=== PATIENT | male | born 1945 | race Caucasian/White ===

== ENCOUNTER 2018-11-01 23:37 | Observation (INO) | payer MEDICARE, OTHER ==
[~2018-11-01] VITALS: Ht 182.9 cm; Wt 91.2 kg
[~2018-11-01 23:37] MED LIST: ATOR80 PO; BUDE6HFA INH; CIPR500 PO; DABI150C PO; DOCU100 PO; GABA100 PO; LOSA25; LOSA50 PO; METO25 PO; METR500 PO; MIRALAX17 GM PO; Norco 10-325 T1 EACH PO; OMEG1CAP30 PO; OYSTER SHELL 51 EACH PO; PANT40 PO; [UNRECOGNIZED DRUG - CODE] PO; [UNRECOGNIZED DRUG - OTHER] PO
[2018-11-02 00:32] LABS: BASOPHILS PERCENT AUTO 1 % (0-2); EOSINOPHILS ABSOLUTE AUTO 0.16 K/mm3 (0.00-0.68); EOSINOPHILS PERCENT AUTO 2 % (0-6); Hematocrit 45.6 % (37.0-53.0); Hemoglobin 15.2 g/dL (13.5-17.5); IMMATURE GRAN ABSOLUTE AUTO 0.02 K/mm3 (0.00-0.10); IMMATURE GRAN PERCENT AUTO 0 % (0-1); LYMPHOCYTES PERCENT AUTO 17 % (21-46); MONOCYTES ABSOLUTE AUTO 0.53 K/mm3 (0.16-1.47); MONOCYTES PERCENT AUTO 7 % (4-13); Mean Corpuscular HGB 30.7 pg (26.0-34.0); Mean Corpuscular HGB Conc 33.3 g/dL (31.5-36.5); Mean Corpuscular Volume 92 fL (80-100); Mean Platelet Volume 11.1 fL (9.1-12.4); NEUTROPHILS ABSOLUTE AUTO 5.98 K/mm3 (1.96-9.15); NEUTROPHILS PERCENT AUTO 73 % (41-73); Platelet Count 221 K/mm3 (150-400); RDW Standard Deviation 47.4 fL (35.1-46.3); Red Blood Cell Count 4.95 M/mm3 (4.30-5.90); White Blood Cell Count 8.19 K/mm3 (4.00-11.30)
[2018-11-02 00:54] LABS: Alanine Aminotransfer (ALT/SGP 25 U/L (12-78); Albumin/Globulin Ratio 0.9 (0.8-1.8); Alk Phos 72 U/L (50-136); Anion Gap 7 mmol/L (6-16); Aspartate Aminotrans (AST/SGOT 15 U/L (12-37); Bilirubin, Total 0.9 mg/dL (0.1-1.0); Blood Urea Nitrogen 13 mg/dL (8-24); Bun/Creatinine Ratio 12.1 (12.0-20.0); CO2, Blood 28 mmol/L (21-32); Calcium, Blood 8.3 mg/dL (8.5-10.1); Chloride, Blood 109 mmol/L (98-108); Creatinine, Blood 1.07 mg/dL (0.60-1.20); Globulin, Blood 3.4 g/dL (2.2-4.0); Glomerular Filtration Rate >60 (60-); Glucose, Blood 109 mg/dL (70-99); Potassium, Blood 3.8 mmol/L (3.5-5.5); Sodium, Blood 144 mmol/L (136-145); Total Protein, Blood 6.4 g/dL (6.4-8.2)
[2018-11-02] MEDS ORDERED: PANT40 PO (02:14)
[2018-11-02 05:24] LABS: Hematocrit 44.1 % (37.0-53.0); Hemoglobin 14.6 g/dL (13.5-17.5); Mean Corpuscular HGB 30.7 pg (26.0-34.0); Mean Corpuscular HGB Conc 33.1 g/dL (31.5-36.5); Mean Corpuscular Volume 93 fL (80-100); Mean Platelet Volume 11.3 fL (9.1-12.4); Platelet Count 211 K/mm3 (150-400); RDW Standard Deviation 47.8 fL (35.1-46.3); Red Blood Cell Count 4.76 M/mm3 (4.30-5.90); White Blood Cell Count 9.22 K/mm3 (4.00-11.30)
[2018-11-02 05:43] LABS: Alanine Aminotransfer (ALT/SGP 25 U/L (12-78); Albumin, Blood 2.8 g/dL (3.4-5.0); Albumin/Globulin Ratio 0.9 (0.8-1.8); Alk Phos 75 U/L (50-136); Anion Gap 6 mmol/L (6-16); Aspartate Aminotrans (AST/SGOT 20 U/L (12-37); Bilirubin, Total 0.8 mg/dL (0.1-1.0); Blood Urea Nitrogen 12 mg/dL (8-24); Bun/Creatinine Ratio 11.3 (12.0-20.0); CO2, Blood 28 mmol/L (21-32); Calcium, Blood 7.9 mg/dL (8.5-10.1); Chloride, Blood 110 mmol/L (98-108); Creatinine, Blood 1.06 mg/dL (0.60-1.20); Globulin, Blood 3.2 g/dL (2.2-4.0); Glomerular Filtration Rate >60 (60-); Glucose, Blood 101 mg/dL (70-99); Potassium, Blood 3.9 mmol/L (3.5-5.5); Sodium, Blood 144 mmol/L (136-145)
--- NOTE | 2018-11-02 06:26 | NUR ---
SHIFT SUMMARY PT NEW ED ADMIT THIS EVENING. NO NAUSEA OR EMESIS SINCE ADMISSION. NO BLOOD NOTED IN SPUTUM. PT VERY PARTICULAR ABOUT CARE AND MOVEMENT. PAINFUL ON LEFT SIDE OF BODY WITH ANY TOUCH. CONTINENT. USES URINAL WHILE IN BED. REPORTS HE GETS UP TO CHAIR AT HIS [facility] BUT WOULD NEED HIS SHOES IN ORDER TO ATTEMPT TO GET UP HERE. GI CONSULT CALLED IN. PROTONIX DRIP RUNNING. NO ACUTE CHANGES SINCE ADMISSION. VSS. WILL CONTINUE TO MONITOR.
[2018-11-02 08:22] LABS: Hematocrit 40.5 % (37.0-53.0); Hemoglobin 13.4 g/dL (13.5-17.5)
--- NOTE | 2018-11-02 11:44 | NUR ---
SPOKE WITH DR. RIDER ON THE PHONE. DR. RIDER SAID TO INCREASE PT'S DIET TO REGULAR DIET. DR. RIDER SAID TO D/C PROTONIX DRIP AND SWITCH TO 40MG PO PROTONIX BID. NO OTHER NEW ORDERS AT THIS TIME.
[2018-11-02 16:35] LABS: Hematocrit 41.1 % (37.0-53.0); Hemoglobin 13.4 g/dL (13.5-17.5)
--- NOTE | 2018-11-02 19:45 | NUR ---
SHIFT SUMMARY- PT AXO X3. PT DENIES PAIN. DENIES SOB. RESP E/U ON RA. DENIES N/V. DR. RIDER IN TO SEE PT TODAY. DR. RIDER PLACED PT ON REGULAR DIET. PT TOLERATING REGULAR DIET. CAREGIVER IN TO SEE PT TODAY. BEDREST. TURNS Q2H. NO OTHER SIGNIFICANT CHANGES THIS SHIFT.
[2018-11-03 00:33] LABS: Hematocrit 40.1 % (37.0-53.0); Hemoglobin 13.2 g/dL (13.5-17.5)
--- NOTE | 2018-11-03 08:05 | NUR ---
11/03/18 0600 VITALS STABLE. IRRITABLE WHEN STAFF PERFORM NURSING TASKS. HE JUST WANTS TO BE "LEFT ALONE". BED LINEN CHANGED DUE TO SPILLING OF URINAL.
--- NOTE | 2018-11-03 13:30 | NUR ---
CALLED AND SPOKE WITH [facility] ABOUT TRANSFER BACK TO [facility]. PT INSISTING ON GURNEY TRANSPORT DUE TO NOT HAVING HIS ELECTRIC W/C AND NOT HAVING HIS BRACE FOR HIS LLE. ALSO CONCERNED ABOUT PAIN IF KAELA USED TO MOVE HIM TO A W/C. SPOKE WITH [facility] AND [facility] TO BE HERE APPROX 1500.
--- NOTE | 2018-11-03 15:20 | NUR ---
DISCHARGE INSTRUCTIONS COMPLETED AND DISCUSSED WITH PT EXPRESSING UNDERSTANDING. SPOKE WITH NEHAL AT [facility] ABOUT CHANGE IN MED. WAS FAXED EARLIER TODAY TO [facility] AND [facility] HERE TO PICK PT UP [facility]IA [facility].
== END 2018-11-03 15:18 | disposition home or self-care (01) ==
LOC: ER 23:37 → MEDS 23:38 → EDBEDREQ 11-02 01:48 → MEDS 11-02 02:22 → ENPENDDIS 11-03 10:55 → MEDS 11-03 15:18
PROVIDERS: Emergency Medicine; ADMIT Internal Medicine
DX: K92.0 Hematemesis (principal); R11.0 Nausea; E78.5 Hyperlipidemia, unspecified; I10 Essential (primary) hypertension; J44.9 Chronic obstructive pulmonary disease, unspecified; Z86.73 Personal history of transient ischemic attack (TIA), and cerebral infarction without residual deficits; Z86.79 Personal history of other diseases of the circulatory system; Z87.19 Personal history of other diseases of the digestive system; Z79.899 Other long term (current) drug therapy; Z88.8 Allergy status to other drugs, medicaments and biological substances
CPT/HCPCS: 36415; 80053; 83690; 85014; 85018; 85025; 85027; 86850; 86900; 86901; 93005; 93010; 94640; 94760; 96361; 96365; 96366; 96375; 96376; 99285-25; C9113; G0378; J2405; J2550; J3010; J7030